=== PATIENT | female | born 1950 | race African-American/Black ===

== ENCOUNTER 2020-06-03 10:27 | Inpatient (IN) ==
[2020-06-03] MEDS ORDERED: SODIUM CHLORIDE 0.9% 500 ML IV STA (11:01)
[2020-06-03] MEDS ORDERED: ONDANSETRON 4 MG/2 ML VIAL IV STA ×2 (11:02→12:07)
[2020-06-03 11:25] LABS: Basophils % 0.6 % (0.0-0.8); Eosinophils % 0.6 % (0.00-10.9); Hematocrit 34.3 VOL% (35.7-47.0); Hemoglobin 11.6 GM/DL (12.0-16.0); Immature Granulocytes % 0.3 %; Immature Granulocytes Absolute 0.02 #; Lymphocytes # 1.4 10*3/uL (1.4-4.0); Lymphocytes % 20.8 % (21.3-54.2); Mean Corpuscular HGB Conc 33.8 GM/DL (32-36); Mean Corpuscular Volume 86.2 FL (87-102); Mean Platelet Volume 11.1 FL (9.6-12.0); Neutrophils % 73.7 % (38.7-73.9); Platelet Count 214 T/CUMM (130-400); Red Blood Count 3.98 MC/CUMM (3.8-5.5); Red Cell Distribution Width 13.7 % (9.3-17.3); White Blood Count 6.7 T/CUMM (4-12)
[2020-06-03 11:43] LABS: Albumin 4.3 G/DL (3.4-5.0); Bilirubin,Total 0.4 MG/DL (0.2-1.0); Calcium 9.8 MG/DL (8.5-10.1); Osmolality,Calculated 282.7 MOS/KG (273-304); Total Protein 8.6 G/DL (6.4-8.3)
[2020-06-03 11:54] LABS: Apearance,Urine CLEAR (Clear); Bilirubin,Urine Negative (Negative); Blood, Urine Negative (Negative); Glucose,Urine (UA) 50 mg/dL (Negative); Ketones,Urine Negative (Negative); Nitrite,Urine Negative (Negative); Protein,Urine 100 MG/DL; RBC,Urine 1 /HPF (0-4); Squamous Epithelial Cell,Urine Occasional /HPF (0-10); Urine Color Yellow (Yellow); Urine Specific Gravity 1.011 (1.001-1.035); WBC,Urine 2 /HPF (0-6)
[2020-06-03] MEDS ORDERED: MORPHINE 4 MG/1 ML VIAL IV STA ×2 (12:53→15:09)
[2020-06-03] MEDS ORDERED: ONDANSETRON 4 MG/2 ML VIAL IV PRN (15:17)
[2020-06-03] MEDS ORDERED: GLUCAGON 1 MG VIAL IM PRN (15:20)
[2020-06-03] MEDS ORDERED: DEXTROSE 50% 25 GM/50 ML VIAL IV PRN (15:20)
[2020-06-03] MEDS: PIPERACILLIN/TAZOBACTAM 3,375 MG in SODIUM CHLORIDE 0.9% 100 ML IV SCH ×2 (17:13→23:49)
[2020-06-03] MEDS: DEXTROSE 5% NACL 0.45% 1,000 ML IV SCH ×2 (17:13→23:49)
[2020-06-03] MEDS: INSULIN REGULAR 100 UNIT/ML SUBCUT SCH (17:41)
[2020-06-04] MEDS: INSULIN REGULAR 100 UNIT/ML SUBCUT SCH ×4 (01:04→17:06)
[2020-06-04] MEDS: HYDROmorphone 2 MG/1 ML VIAL IV PRN ×2 (04:20→21:39)
[2020-06-04] MEDS: POTASSIUM CHLORIDE RIDER 10 MEQ in PREMIX 1 EACH IV PRN ×3 (04:23→07:25)
[2020-06-04 06:05] LABS: Basophils % 0.3 % (0.0-0.8); Hematocrit 30.9 VOL% (35.7-47.0); Hemoglobin 10.4 GM/DL (12.0-16.0); Immature Granulocytes % 0.3 %; Immature Granulocytes Absolute 0.04 #; Lymphocytes # 1.6 10*3/uL (1.4-4.0); Lymphocytes % 13.6 % (21.3-54.2); Mean Corpuscular HGB Conc 33.7 GM/DL (32-36); Mean Corpuscular Volume 86.8 FL (87-102); Mean Platelet Volume 11.6 FL (9.6-12.0); Monocytes % 7.8 % (1.7-12.7); Platelet Count 208 T/CUMM (130-400); Red Blood Count 3.56 MC/CUMM (3.8-5.5); Red Cell Distribution Width 13.9 % (9.3-17.3); White Blood Count 11.6 T/CUMM (4-12)
[2020-06-04 06:50] LABS: Albumin 3.6 G/DL (3.4-5.0); Calcium 9.1 MG/DL (8.5-10.1); Osmolality,Calculated 281.5 MOS/KG (273-304); Total Protein 7.6 G/DL (6.4-8.3)
[2020-06-04] MEDS: PIPERACILLIN/TAZOBACTAM 3,375 MG in SODIUM CHLORIDE 0.9% 100 ML IV SCH ×3 (08:05→21:33)
[2020-06-04] MEDS ORDERED: MAGNESIUM SULF RIDER 2 GM in PREMIX 1 EACH IV PRN (08:19)
[2020-06-04] MEDS ORDERED: MAGNESIUM SULF RIDER 4 GM in PREMIX 1 EACH IV PRN (08:19)
[2020-06-04] MEDS ORDERED: POTASSIUM CHLORIDE 20 MEQ TABLET PO ONE (08:40)
[2020-06-04] MEDS ORDERED: PANTOPRAZOLE 40 MG TABLET PO SCH (09:00)
[2020-06-04] MEDS: DEXT 5% NACL 0.9% KCL 40 MEQ 40 MEQ/1,000 ML BAG IV SCH ×2 (09:27→16:47)
[2020-06-04] MEDS: DEXTROSE 5% NACL 0.45% 1,000 ML IV SCH (09:42)
[2020-06-04 12:17] LABS: Calcium 8.8 MG/DL (8.5-10.1); Osmolality,Calculated 278.8 MOS/KG (273-304)
[2020-06-04] MEDS ORDERED: POTASSIUM CHLORIDE RIDER 100 ML IV SCH (12:30)
[2020-06-04] MEDS: POTASSIUM CHLORIDE RIDER 10 MEQ in PREMIX 1 EACH IV SCH ×6 (13:30→18:55)
[2020-06-04 18:12] LABS: Calcium 8.6 MG/DL (8.5-10.1)
[2020-06-05] MEDS: INSULIN REGULAR 100 UNIT/ML SUBCUT SCH ×4 (00:08→17:22)
[2020-06-05 00:44] LABS: Calcium 8.2 MG/DL (8.5-10.1); Osmolality,Calculated 284.5 MOS/KG (273-304)
[2020-06-05] MEDS: DEXT 5% NACL 0.9% KCL 40 MEQ 40 MEQ/1,000 ML BAG IV SCH ×3 (01:49→15:47)
[2020-06-05] MEDS: PIPERACILLIN/TAZOBACTAM 3,375 MG in SODIUM CHLORIDE 0.9% 100 ML IV SCH ×3 (05:10→20:38)
[2020-06-05 06:58] LABS: Calcium 8.4 MG/DL (8.5-10.1); Osmolality,Calculated 287.5 MOS/KG (273-304)
[2020-06-05] MEDS: PANTOPRAZOLE 40 MG VIAL IV SCH (08:29)
[2020-06-05] MEDS: POTASSIUM CHLORIDE 20 MEQ TABLET PO SCH ×2 (08:29→09:45)
[2020-06-05] MEDS: HYDROmorphone 2 MG/1 ML VIAL IV PRN ×3 (10:12→22:22)
[2020-06-05] MEDS ORDERED: POTASSIUM CHLORIDE 20 MEQ TABLET PO ONE ×2 (12:13→21:16)
[2020-06-05 13:00] LABS: Calcium 8.3 MG/DL (8.5-10.1); Osmolality,Calculated 284.8 MOS/KG (273-304)
[2020-06-05 18:22] LABS: Calcium 8.5 MG/DL (8.5-10.1); Osmolality,Calculated 285.5 MOS/KG (273-304)
[2020-06-06] MEDS: INSULIN REGULAR 100 UNIT/ML SUBCUT SCH ×4 (01:09→18:51)
[2020-06-06] MEDS: DEXT 5% NACL 0.9% KCL 40 MEQ 40 MEQ/1,000 ML BAG IV SCH ×2 (02:52→09:03)
[2020-06-06] MEDS: PIPERACILLIN/TAZOBACTAM 3,375 MG in SODIUM CHLORIDE 0.9% 100 ML IV SCH ×3 (05:56→23:48)
[2020-06-06 06:25] LABS: Basophils % 0.4 % (0.0-0.8); Eosinophils # 0.2 10*3/uL (0.0-0.87); Eosinophils % 2.4 % (0.00-10.9); Hematocrit 28.8 VOL% (35.7-47.0); Hemoglobin 9.8 GM/DL (12.0-16.0); Immature Granulocytes % 0.4 %; Immature Granulocytes Absolute 0.03 #; Lymphocytes # 1.9 10*3/uL (1.4-4.0); Lymphocytes % 27.4 % (21.3-54.2); Mean Corpuscular Volume 86.2 FL (87-102); Mean Platelet Volume 11.4 FL (9.6-12.0); Monocytes % 6.6 % (1.7-12.7); Neutrophils % 62.8 % (38.7-73.9); Platelet Count 200 T/CUMM (130-400); Red Blood Count 3.34 MC/CUMM (3.8-5.5); Red Cell Distribution Width 13.9 % (9.3-17.3); White Blood Count 6.9 T/CUMM (4-12)
[2020-06-06 07:01] LABS: Bilirubin,Total 0.9 MG/DL (0.2-1.0); Calcium 8.4 MG/DL (8.5-10.1); Osmolality,Calculated 285.3 MOS/KG (273-304); Total Protein 6.8 G/DL (6.4-8.3)
[2020-06-06] MEDS: PANTOPRAZOLE 40 MG VIAL IV SCH (09:01)
[2020-06-06] MEDS ORDERED: BUPIVACAINE MPF 0.25% 30 ML VIAL ONE (10:09)
[2020-06-06] MEDS ORDERED: LIDOCAINE 1%/EPI INJ 20 ML VIAL ONE (10:09)
[2020-06-06] MEDS ORDERED: fentaNYL 100 MCG/2 ML VIAL ONE (13:22)
[2020-06-06] MEDS ORDERED: MIDAZOLAM 2 MG/2 ML VIAL ONE (13:22)
[2020-06-06] MEDS ORDERED: SEVOFLURANE 1 UNIT/15 MINUTE INH ONE (13:23)
[2020-06-06] MEDS ORDERED: ONDANSETRON 4 MG/2 ML VIAL ONE ×2 (13:23→13:55)
[2020-06-06] MEDS ORDERED: LIDOCAINE 2% 5 ML VIAL ONE (13:23)
[2020-06-06] MEDS ORDERED: propofoL 200 MG/20 ML VIAL IV ONE (13:23)
[2020-06-06] MEDS ORDERED: GLYCOPYRROLATE 0.4 MG/2 ML VIAL ONE (13:23)
[2020-06-06] MEDS ORDERED: LACTATED RINGERS 1,000 ML IV ONE (13:24)
[2020-06-06] MEDS ORDERED: PHENYLEPHRINE 1 MG/10 ML SYRINGE IV ONE (13:24)
[2020-06-06] MEDS ORDERED: ROCURONIUM 100 MG/10 ML VIAL IV ONE (13:24)
[2020-06-06] MEDS ORDERED: NEOSTIGMINE 10 MG/10 ML VIAL ONE (13:24)
[2020-06-06] MEDS ORDERED: ONDANSETRON 4 MG/2 ML VIAL IV PRN (13:55)
[2020-06-06] MEDS ORDERED: HYDROmorphone 2 MG/1 ML VIAL IV PRN (13:55)
[2020-06-06] MEDS: HYDROmorphone 2 MG/1 ML VIAL IV PRN (20:20)
[2020-06-07] MEDS: INSULIN REGULAR 100 UNIT/ML SUBCUT SCH ×3 (00:35→12:17)
[2020-06-07] MEDS: HYDROmorphone 2 MG/1 ML VIAL IV PRN (05:03)
[2020-06-07 05:04] LABS: Basophils % 0.3 % (0.0-0.8); Eosinophils # 0.1 10*3/uL (0.0-0.87); Eosinophils % 0.9 % (0.00-10.9); Hematocrit 30.5 VOL% (35.7-47.0); Immature Granulocytes % 0.3 %; Immature Granulocytes Absolute 0.02 #; Lymphocytes # 1.4 10*3/uL (1.4-4.0); Lymphocytes % 20.3 % (21.3-54.2); Mean Corpuscular HGB Conc 32.8 GM/DL (32-36); Mean Corpuscular Volume 87.6 FL (87-102); Mean Platelet Volume 10.6 FL (9.6-12.0); Monocytes % 8.1 % (1.7-12.7); Neutrophils % 70.1 % (38.7-73.9); Platelet Count 229 T/CUMM (130-400); Red Blood Count 3.48 MC/CUMM (3.8-5.5); Red Cell Distribution Width 13.7 % (9.3-17.3)
[2020-06-07 05:27] LABS: Calcium 8.8 MG/DL (8.5-10.1); Osmolality,Calculated 283.3 MOS/KG (273-304)
[2020-06-07] MEDS: PIPERACILLIN/TAZOBACTAM 3,375 MG in SODIUM CHLORIDE 0.9% 100 ML IV SCH (06:00)
[2020-06-07] MEDS: DEXT 5% NACL 0.9% KCL 40 MEQ 40 MEQ/1,000 ML BAG IV SCH (07:15)
[2020-06-07] MEDS: PANTOPRAZOLE 40 MG VIAL IV SCH (09:32)
[2020-06-07] MEDS ORDERED: HYDROmorphone 2 MG TABLET PO ONE (10:37)
[2020-06-07 11:21] VITALS: BP 133/62
== END 2020-06-07 13:13 | disposition home health service (06) | DRG 418 ==
LOC: N.ED 10:27 → N.EDINP 15:17 → N.3E 16:55
PROVIDERS: ADMIT Surgery; ATTEND Surgery
PROC: LAPCHOL (2020-06-06 11:34)

== ENCOUNTER 2021-01-02 15:45 | Observation (INO) ==
[2021-01-02 17:23] LABS: Basophils % 0.7 % (0.0-0.8); Eosinophils # 0.2 10*3/uL (0.0-0.87); Eosinophils % 2.8 % (0.00-10.9); Hematocrit 35.6 VOL% (35.7-47.0); Hemoglobin 11.5 GM/DL (12.0-16.0); Immature Granulocytes % 0.2 %; Immature Granulocytes Absolute 0.01 #; Lymphocytes # 2.3 10*3/uL (1.4-4.0); Mean Corpuscular HGB Conc 32.3 GM/DL (32-36); Mean Corpuscular Volume 83.6 FL (87-102); Mean Platelet Volume 11.8 FL (9.6-12.0); Neutrophils % 51.3 % (38.7-73.9); Platelet Count 212 T/CUMM (130-400); Red Blood Count 4.26 MC/CUMM (3.8-5.5); Red Cell Distribution Width 13.3 % (9.3-17.3)
[2021-01-02 17:30] LABS: Bacteria,Urine Occasional /HPF (Few); Bilirubin,Urine Negative (Negative); Blood, Urine Negative (Negative); Glucose,Urine (UA) >=500 mg/dL (Negative); Ketones,Urine Negative (Negative); Mucus,Urine Occasional /LPF (Occasional); Nitrite,Urine Negative (Negative); Protein,Urine Negative; RBC,Urine 3 /HPF (0-4); Squamous Epithelial Cell,Urine Occasional /HPF (0-10); Urine Appearance CLEAR (Clear); Urine Color Yellow (Yellow); Urine Specific Gravity 1.007 (1.001-1.035); Urine Urobilinogen < 2.0 EU/DL (0.2-1.0); WBC,Urine 11 /HPF (0-6)
[2021-01-02 17:46] LABS: Alanine Aminotransferase 16 U/L (13-56); Albumin 4.1 G/DL (3.4-5.0); Alkaline Phosphatase 105 U/L (45-117); Aspartate Amino Transferase 17 U/L (0-37); Bilirubin,Total < 0.39 MG/DL (0.2-1.0); Blood Urea Nitrogen 12 MG/DL (7-18); Calcium 9.7 MG/DL (8.5-10.1); Carbon Dioxide 24 MMOL/L (21-32); Estimated Glom Filtration Rate 65 ML/MIN; Glucose 252 MG/DL (74-106); Osmolality,Calculated 283.7 MOS/KG (273-304); Potassium 3.7 MMOL/L (3.5-5.1); Sodium 138 MMOL/L (136-145); Total Protein 8.2 G/DL (6.4-8.3)
[2021-01-02] MEDS ORDERED: cefTRIAXone 1,000 MG in SODIUM CHLORIDE 0.9% 100 ML IV STA (19:03)
[2021-01-02] MEDS ORDERED: METOCLOPRAMIDE 10 MG/2 ML VIAL IV STA (19:04)
[2021-01-02] MEDS ORDERED: MORPHINE 4 MG/1 ML VIAL IV STA (19:04)
[2021-01-02] MEDS ORDERED: SODIUM CHLORIDE 0.9% 1,000 ML IV STA (19:04)
[2021-01-02] MEDS ORDERED: PANTOPRAZOLE 40 MG VIAL IV STA (19:04)
[2021-01-02] MEDS ORDERED: ONDANSETRON 4 MG/2 ML VIAL IV STA (19:04)
[2021-01-02] MEDS ORDERED: cefTRIAXone 1,000 MG VIAL ONE (19:06)
[2021-01-02] MEDS ORDERED: GLUCAGON 1 MG VIAL IM PRN (19:57)
[2021-01-02] MEDS ORDERED: ONDANSETRON 4 MG/2 ML VIAL IV PRN (19:57)
[2021-01-02] MEDS ORDERED: DEXTROSE 50% 25 GM/50 ML VIAL IV PRN (19:57)
[2021-01-02 20:18] LABS: Risk Ratio 2.06; VLDL CHOLESTEROL 34.8 MG/DL
[2021-01-02] MEDS: SODIUM CHLORIDE 0.9% 1,000 ML IV SCH (22:03)
[2021-01-02] MEDS: carvediloL 6.25 MG TABLET PO SCH (22:03)
[2021-01-02] MEDS: ENOXAPARIN 40 MG/0.4 ML SYRINGE SUBCUT SCH (22:04)
[2021-01-02] MEDS: LATANOPROST 0.005% OPH SOLN 2.5 ML BOTTLE BOTH EYES SCH (22:04)
[2021-01-02] MEDS: INSULIN REGULAR 100 UNIT/ML SUBCUT SCH (22:04)
[2021-01-02] MEDS: metFORMIN 500 MG TABLET PO SCH (22:04)
[2021-01-02 22:13] LABS: Calcium 9.1 MG/DL (8.5-10.1); Osmolality,Calculated 285.1 MOS/KG (273-304); Potassium 3.8 MMOL/L (3.5-5.1)
[2021-01-02] MEDS: MORPHINE 4 MG/1 ML VIAL IV PRN (23:32)
[2021-01-03] MEDS: SODIUM CHLORIDE 0.9% 1,000 ML IV SCH ×3 (04:47→21:15)
[2021-01-03] MEDS: MORPHINE 4 MG/1 ML VIAL IV PRN ×3 (05:15→23:51)
[2021-01-03 05:33] LABS: Basophils % 0.6 % (0.0-0.8); Eosinophils # 0.2 10*3/uL (0.0-0.87); Eosinophils % 2.4 % (0.00-10.9); Hematocrit 31.8 VOL% (35.7-47.0); Hemoglobin 10.5 GM/DL (12.0-16.0); Immature Granulocytes % 0.2 %; Immature Granulocytes Absolute 0.01 #; Lymphocytes # 2.8 10*3/uL (1.4-4.0); Lymphocytes % 44.7 % (21.3-54.2); Mean Corpuscular Volume 83.2 FL (87-102); Mean Platelet Volume 12.1 FL (9.6-12.0); Monocytes % 7.3 % (1.7-12.7); Neutrophils % 44.8 % (38.7-73.9); Platelet Count 209 T/CUMM (130-400); Red Blood Count 3.82 MC/CUMM (3.8-5.5); Red Cell Distribution Width 13.3 % (9.3-17.3); White Blood Count 6.2 T/CUMM (4-12)
[2021-01-03] MEDS: INSULIN REGULAR 100 UNIT/ML SUBCUT SCH ×4 (07:35→21:10)
[2021-01-03] MEDS: carvediloL 6.25 MG TABLET PO SCH ×2 (08:24→17:04)
[2021-01-03] MEDS: ASPIRIN EC 81 MG TABLET PO SCH (08:25)
[2021-01-03] MEDS: metFORMIN 500 MG TABLET PO SCH ×2 (08:25→21:13)
[2021-01-03] MEDS: PANTOPRAZOLE 40 MG TABLET PO SCH (08:25)
[2021-01-03] MEDS: LOSARTAN/HCTZ 50-12.5 MG TABLET PO SCH (09:27)
[2021-01-03] MEDS: LATANOPROST 0.005% OPH SOLN 2.5 ML BOTTLE BOTH EYES SCH (21:10)
[2021-01-03] MEDS: ENOXAPARIN 40 MG/0.4 ML SYRINGE SUBCUT SCH (21:13)
[2021-01-04] MEDS: SODIUM CHLORIDE 0.9% 1,000 ML IV SCH ×3 (05:26→22:39)
[2021-01-04] MEDS: INSULIN REGULAR 100 UNIT/ML SUBCUT SCH ×4 (09:39→22:41)
[2021-01-04] MEDS: ASPIRIN EC 81 MG TABLET PO SCH (09:39)
[2021-01-04] MEDS: LOSARTAN/HCTZ 50-12.5 MG TABLET PO SCH (09:40)
[2021-01-04] MEDS: metFORMIN 500 MG TABLET PO SCH ×2 (09:40→22:40)
[2021-01-04] MEDS: carvediloL 6.25 MG TABLET PO SCH ×2 (09:40→17:44)
[2021-01-04] MEDS: PANTOPRAZOLE 40 MG TABLET PO SCH (09:40)
[2021-01-04] MEDS: LACTULOSE 20 GM/30 ML UDCUP PO PRN (16:07)
[2021-01-04] MEDS: MORPHINE 4 MG/1 ML VIAL IV PRN ×2 (17:47→22:44)
[2021-01-04] MEDS: DOCUSATE SODIUM 100 MG CAPSULE PO SCH (22:40)
[2021-01-04] MEDS: LATANOPROST 0.005% OPH SOLN 2.5 ML BOTTLE BOTH EYES SCH (22:41)
[2021-01-04] MEDS: ENOXAPARIN 40 MG/0.4 ML SYRINGE SUBCUT SCH (22:41)
[2021-01-05 06:28] LABS: Basophils % 0.6 % (0.0-0.8); Eosinophils # 0.3 10*3/uL (0.0-0.87); Eosinophils % 4.9 % (0.00-10.9); Hemoglobin 9.7 GM/DL (12.0-16.0); Immature Granulocytes % 0.2 %; Immature Granulocytes Absolute 0.01 #; Lymphocytes # 2.4 10*3/uL (1.4-4.0); Lymphocytes % 45.5 % (21.3-54.2); Mean Corpuscular HGB Conc 33.4 GM/DL (32-36); Mean Corpuscular Volume 83.1 FL (87-102); Mean Platelet Volume 11.7 FL (9.6-12.0); Monocytes % 6.7 % (1.7-12.7); Neutrophils % 42.1 % (38.7-73.9); Platelet Count 175 T/CUMM (130-400); Red Blood Count 3.49 MC/CUMM (3.8-5.5); Red Cell Distribution Width 13.2 % (9.3-17.3); White Blood Count 5.4 T/CUMM (4-12)
[2021-01-05] MEDS: SODIUM CHLORIDE 0.9% 1,000 ML IV SCH (06:35)
[2021-01-05 06:48] LABS: Calcium 8.8 MG/DL (8.5-10.1); Osmolality,Calculated 283.8 MOS/KG (273-304); Potassium 3.4 MMOL/L (3.5-5.1)
[2021-01-05] MEDS ORDERED: POTASSIUM CHLORIDE 20 MEQ TABLET PO ONE (07:55)
[2021-01-05 08:04] VITALS: BP 147/77
[2021-01-05] MEDS: MORPHINE 4 MG/1 ML VIAL IV PRN (09:12)
[2021-01-05] MEDS: LACTULOSE 20 GM/30 ML UDCUP PO PRN (09:15)
[2021-01-05] MEDS: ASPIRIN EC 81 MG TABLET PO SCH (09:15)
[2021-01-05] MEDS: metFORMIN 500 MG TABLET PO SCH (09:15)
[2021-01-05] MEDS: DOCUSATE SODIUM 100 MG CAPSULE PO SCH (09:16)
[2021-01-05] MEDS: carvediloL 6.25 MG TABLET PO SCH (09:16)
[2021-01-05] MEDS: PANTOPRAZOLE 40 MG TABLET PO SCH (09:16)
[2021-01-05] MEDS: LOSARTAN/HCTZ 50-12.5 MG TABLET PO SCH (09:20)
[2021-01-05 10:52] LABS: % Iron Saturation 13.7 % (18-50); Ferritin 12.6 ng/ml (8-252)
[2021-01-05 10:54] LABS: Folate 15.2 NG/ML (5.38-24.0)
[2021-01-05] MEDS: INSULIN REGULAR 100 UNIT/ML SUBCUT SCH (11:23)
== END 2021-01-05 12:33 | disposition home or self-care (01) ==
LOC: N.EDINP 15:45 → N.ED 15:45 → SUATTDRO 19:57 → N.EDINP 20:50 → N.5E 21:23
PROVIDERS: ADMIT Emergency Medicine; ATTEND Internal Medicine